=== PATIENT | male | born 1960 | race Caucasian/White ===

== ENCOUNTER 2022-10-15 15:36 | Outpatient (CLI) | payer MEDICARE, OTHER, SELFPAY ==
--- NOTE | ~2022-10-15 | XR_ITS ---
EXAMINATION:XR_CERV2-3V_CR DATE: 10/15/2022 16:04 INDICATION: Neck pain TECHNIQUE: AP, lateral, lateral swimmers and odontoid views of the cervical spine are provided. COMPARISON: None FINDINGS: Cervical thoracic instrumented posterior spinal fusion with bilateral vertical rods and lateral mass screws bilaterally at C4, C5 and C6 and pedicle screws bilaterally at T1 and T2. No evident instrumen tation failure or lucency surrounding the screws to suggest loosening or infection. There appears to be associated C4-C7 laminectomies. Alignment is normal. Vertebral body heights are normal. Mild disc height loss at C3-C4 and through C6-C7 C7-T1 and moderate disc height loss at C4-C5. Odontoid is inta ct. Moderate atlantoaxial osteoarthritis.. Prevertebral soft tissues are normal. Plate and screw fix ation along the left clavicle. IMPRESSION: 1. Moderate cervical spondylosis with C4-T2 instrumented posterior spinal fusion and likely C4-C7 johnson inectomies. Reviewed, dictated and finalized at location A. IMPRESSION: 1. Moderate cervical spondylosis with C4-T2 instrumented posterior spinal fusio n and likely C4-C7 laminectomies.
== END 2022-10-15 15:37 | disposition home or self-care (01) ==
PROVIDERS: PCP Family Medicine; Visit Provider Neurological Surgery
DX: Z98.1 Arthrodesis status (principal); M47.892 Other spondylosis, cervical region
CPT/HCPCS: 72040

== ENCOUNTER 2023-04-29 11:40 | Outpatient (CLI) | payer MEDICARE, OTHER, SELFPAY ==
--- NOTE | ~2023-04-29 | XR_ITS ---
XR_CERV2-3V_CR DATE: 04/29/2023 12:06 INDICATION: Cord compression. History of surgery. TECHNIQUE: Standing AP, open-mouth, lateral, swimmer views COMPARISON: 10/15/2022 cervical spine FINDINGS: Status post posterior surgical fusion at C4-T2, bilateral pedicle screws at C4, C5, C6, T1 and T2, with attached rods. C1 and C2 are normally aligned and the odontoid process is intact. No fracture or dislocation, locked facet or prevertebral soft tissue swelling is detected. Mild loss of disc space height and minimal retrolisthesis at C3-4. There is moderately severe degenerative disease at C4-5, C5-6 and C6-7 Approximately 3-4 mm anterolisthesis at C7-T1. Plate and screws of left clavicle. IMPRESSION: Status post posterior surgical fusion at C4-T2 Multilevel degenerative disc disease, most prominent at C4-5, C5-6 and C6-7 Loss of interspace height and minimal retrolisthesis at C3-4 Approximately 3 to 4 mm anterolisthesis at C7-T1 Reviewed, dictated and finalized at Location A. Reviewed, dictated and finalized at location L. NICAL REP
--- NOTE | ~2023-04-29 | XR_ITS ---
EXAMINATION: XR thoracic spine 3V DATE: 04/29/2023 12:06 INDICATION: Unspecified cord compression. TECHNIQUE: 3 views of thoracic spine on 4 radiographs were obtained. COMPARISON: None. FINDINGS: There is 8 degrees levocurvature of thoracolumbar spine. There is 6 degrees dextrocurvature of thoracic spine. There is 7 degrees levocurvature of cervicothoracic spine. There are changes of p osterior fusion procedure from C4 to T2 with instrumentation. Vertebral body heights are normal. Ther e is mildly decreased disc height at multiple levels in mid thoracic spine. There are endplate osteop hytes at most thoracic levels. Surgical clips in the right upper quadrant are likely from cholecystec wendie. There is plate and screw fixation of left clavicle. IMPRESSION: 1. Mild thoracic spondylosis. 2. Posterior fusion procedure from C4 to T2. Reviewed, dictated and finalized at location A. OMER LIAISON
== END 2023-04-29 11:41 | disposition home or self-care (01) ==
LOC: ANHIMG 11:46
PROVIDERS: PCP Family Medicine; Visit Provider Neurological Surgery
DX: M43.02 Spondylolysis, cervical region (principal); G95.20 Unspecified cord compression; M43.04 Spondylolysis, thoracic region; Z98.1 Arthrodesis status; M50.31 Other cervical disc degeneration, high cervical region
CPT/HCPCS: 72040; 72072

== ENCOUNTER 2023-11-11 13:41 | Outpatient (CLI) | payer MEDICARE, OTHER, SELFPAY ==
--- NOTE | ~2023-11-11 | XR_ITS ---
EXAMINATION: XR_CERV2-3V_CR DATE: 11/11/2023 13:59 INDICATION: Arthrodesis status. TECHNIQUE: 3 views of cervical spine were obtained. COMPARISON: Cervical spine radiographs 04/29/2023 FINDINGS: There is 2 mm retrolisthesis of C4 on C5. There is 7 degrees levocurvature of cervicothorac ic spine. There are changes of posterior fusion procedure from C4 to T2 with lateral mass screws and pedicle screws and rods. Vertebral body heights are normal. There is mildly decreased disc height at C3-C4, superiorly decreased disc height at C4-C5, and moderately decreased disc at C5-C6, C6-C7, and C7-T1. There are laminectomies from C4 to C7. There is mild central canal stenosis at C4-C5, C5-C6, a nd C6-C7 with posterior decompression. No prevertebral soft tissue swelling. There is plate-screw fix ation of left clavicle. IMPRESSION: 1. Severe cervical spondylosis. 2. Posterior fusion procedure from C4 to T2. Reviewed, dictated and finalized at location A.
== END 2023-11-11 13:42 | disposition home or self-care (01) ==
PROVIDERS: PCP Family Medicine; Visit Provider Neurological Surgery
DX: M43.02 Spondylolysis, cervical region (principal); G95.20 Unspecified cord compression; Z98.1 Arthrodesis status
CPT/HCPCS: 72040